=== PATIENT | male | born 2000 | race Two or more races ===

== ENCOUNTER 2021-07-08 16:56 | Emergency (ER) | payer OTHER, MEDICAID ==
[~2021-07-08] VITALS: Ht 177.8 cm; Wt 104.3 kg
[2021-07-08 16:57] VITALS: BP 145/85
== END 2021-07-08 19:47 | disposition left against medical advice (07) ==
LOC: ER 16:56
DX: M25.572 Pain in left ankle and joints of left foot (principal); Z53.21 Procedure and treatment not carried out due to patient leaving prior to being seen by health care provider